=== PATIENT | female | born 1985 | race Caucasian/White ===

== ENCOUNTER → 2019-10-10 | Outpatient (CLI) | payer BC | END | disposition home or self-care (01) | LOC: LABWHC1 06:59 | PROVIDERS: ATTEND Family Medicine | DX: Z20.828 Contact with and (suspected) exposure to other viral communicable diseases (principal) | CPT/HCPCS: U0003; C9803 ==

== ENCOUNTER → 2022-11-03 | Outpatient (CLI) | payer BC | END | disposition home or self-care (01) | LOC: RADMRIMAIN 05:56 | PROVIDERS: ATTEND Family Medicine | DX: Z53.9 Procedure and treatment not carried out, unspecified reason (principal) ==

== ENCOUNTER → 2023-05-10 | Outpatient (CLI) | payer BC ==
--- NOTE | 2023-05-11 13:05 | MM ---
Reason for Exam: Screening (asymptomatic). Baseline mammogram. Patient History: Menarche at age 12. First Full-Term at age 27. Maternal aunt had breast cancer. Risk Values: Raya 5 year model risk: 0.4%. NCI Lifetime model risk: 12.3%. Prior Study Comparison: Patient's first Mammogram. Tissue Density: The breast tissue is almost entirely fat. Findings: Analyzed By CAD. There is no suspicious group of microcalcifications or new suspicious mass. Overall Assessment: Negative, BI-RAD 1 Management: Screening Mammogram of both breasts in [address] [facility] will attempt to contact patient to return for supplemental views and ultrasound if indicated. Patient should continue monthly self-breast exams. A clinical breast exam by your physician is recommended on an annual basis. This exam should not preclude additional follow-up of suspicious palpable abnormalities. Note on Raya scores and lifetime risk: 1. A Raya score greater than 3% is considered moderate risk. If this is the case, consider specialist referral to assess eligibility for a risk reducing agent. 2. If overall lifetime risk for the development of breast cancer is 20% or higher, the patient may qualify for future screening with alternating mammogram and breast MRI. Electronically signed and approved by: Singh Orta DO
== END | disposition home or self-care (01) ==
LOC: RADMAMWWP 13:11
PROVIDERS: ATTEND Family Medicine
DX: Z12.31 Encounter for screening mammogram for malignant neoplasm of breast (principal); Z80.3 Family history of malignant neoplasm of breast
CPT/HCPCS: 77063; 77067

== ENCOUNTER 2024-01-04 11:08 | Day surgery (SDC) | payer BC ==
[2024-01-03 10:34] VITALS: BMI 32.9
[2024-01-04 11:57] VITALS: RESP 16; TEMP 98.1
[2024-01-04] MEDS: LACTATED RINGERS 1,000 ML IV SCH (11:58)
[2024-01-04] MEDS: IV FLUID CONTINUATION 1,000 ML IV ONE (12:00)
[2024-01-04] MEDS: LIDOCAINE 1% (10MG/ML) FOR IV START INTRADERMA ONE (12:00)
[2024-01-04] MEDS ORDERED: PROPOFOL 10 MG/ML 20 ML VIAL IV ONE (13:05)
--- NOTE | 2024-01-04 13:06 | P.GSHP ---
History of Present Illness H&P Date: 01/04/24 38-year-old female presents for upper endoscopy. She has had GERD symptoms for the past few months that have increased in intensity. She takes omeprazole 20 mg daily without any significant effect. She describes bile taste in the back of her mouth and burning sensation in her chest. She has family history of esophageal carcinoma with her father. - Review of Systems All systems: negative Past Medical History Past Medical History: GERD/Reflux Additional Past Medical History / Comment(s): Migraines. History of Any Multi-Drug Resistant Organisms: None Reported Past Surgical History: Section Additional Past Surgical History / Comment(s): WISDOM TEETH, Endometrioma removed. Past Anesthesia/Blood Transfusion Reactions: Motion Sickness, No Reported Reaction Additional Past Anesthesia/Blood Transfusion Reaction / Comment(s): NEVER HAD GENERAL ANESTHESIA. Smoking Status: Former smoker - Past Family History Mother Family Medical History: No Reported History Father Family Medical History: Cancer Medications and Allergies Home Medications Medication Instructions Recorded Confirmed Type Ibuprofen 600 mg PO ONCE 05/09/19 01/03/24 History Control Pill 1 tab PO 1200 01/03/24 01/03/24 History Omeprazole 20 mg PO DAILY 01/03/24 01/03/24 History Allergies Allergy/AdvReac Type Severity Reaction Status Date / Time nitrofurantoin Allergy bodyaches Verified 01/04/24 11:48 [From Macrobid] Sulfa (Sulfonamide Allergy Rash/Hives Verified 01/04/24 11:48 Antibiotics) Surgical - Exam Osteopathic Statement: *. No significant issues noted on an osteopathic structural exam other than those noted in the History and Physical/Consult. Vital Signs Temp Pulse Resp BP Pulse Ox 98.1 F 94 16 155/80 100 01/04/24 11:55 01/04/24 11:55 01/04/24 11:55 01/04/24 11:55 01/04/24 11:55 - General well nourished, no distress - Eyes normal ocular movement - ENT no hearing loss - Neck trachea midline - Respiratory normal respiratory effort - Abdomen Abdomen: soft, non tender - Psychiatric oriented to time, oriented to person, oriented to place Assessment and Plan Plan: 38-year-old female with GERD. Plan for upper endoscopy. Further recommendations after procedure is completed. Risks, benefits and alternatives were discussed with the patient. All questions answered.
--- NOTE | 2024-01-04 13:15 | P.PCN ---
Date of Procedure: 01/04/24 Preoperative Diagnosis: GERD Postoperative Diagnosis: Gastritis Duodenitis Small hiatal hernia Procedure(s) Performed: EGD with biopsy Anesthesia: MAC Surgeon: Gume Aviles Pathology: other (Biopsies of antrum, duodenum, GE junction) Condition: stable Disposition: same day Indications for Procedure: 38-year-old female presents with increasing GERD symptoms of burning in chest and bile taste in the back of her throat. She also has a family history of esophageal carcinoma. Plan is for upper endoscopy for further evaluation. Risks, benefits and alternatives were provided to the patient. All questions answered. Operative Findings: Gastritis Duodenitis Small hiatal hernia Description of Procedure: Patient was brought to the endoscopy suite and placed in left lateral decubitus position and adequate sedation was achieved using conscious sedation. A bite- block was placed and an endoscope was placed in the oropharynx and advanced under endoscopic visualization. The endoscope was advanced through the esophagus into the stomach, through the gastric antrum and in through the pylorus. The third portion of duodenum was visualized. The endoscope was then slowly withdrawn. The first portion of the duodenum was noted to have mild inflammatory changes. Biopsies were taken. The antrum was noted to have mild inflammatory changes. Biopsies were taken. The gastric body distended normally and the gastric folds appeared normal and flattened with insufflation. A retroflexed view of the fundus and GE junction revealed a mild hiatal hernia. The esophagus appeared endoscopically normal. Biopsies of the GE junction were taken. Excess air was removed and the scope was withdrawn and the procedure was completed. The patient was then sent to postanesthesia care unit in stable condition.
[2024-01-04 13:35] VITALS: BP 114/69; PULSE 81
== END 2024-01-04 14:00 | disposition home or self-care (01) ==
LOC: ORWHC2ENDO 11:08
PROVIDERS: ATTEND Surgery
CPT/HCPCS: 43239; 81025; 88305

== ENCOUNTER → 2024-05-22 | Outpatient (CLI) | payer BC ==
--- NOTE | 2024-05-22 14:02 | MM ---
Reason for Exam: Screening (asymptomatic). Last screening mammogram was performed 12 month(s) ago. Patient History: Menarche at age 12. First Full-Term at age 27. Maternal aunt had breast cancer. Risk Values: Raya 5 year model risk: 0.5%. NCI Lifetime model risk: 12.3%. Prior Study Comparison: 05/10/2023 Bilateral MG 3D screening mammo w/cad, [facility]. Tissue Density: There are scattered areas of fibroglandular density. Findings: Analyzed By CAD. Right breast: There is no suspicious group of microcalcifications or new suspicious mass. Left breast: There is no suspicious group of microcalcifications or new suspicious mass. Overall Assessment: Negative, BI-RAD 1 Management: Screening Mammogram of both breasts in [address] [facility] will attempt to contact patient to return for supplemental views and ultrasound if indicated. Patient should continue monthly self-breast exams. A clinical breast exam by your physician is recommended on an annual basis. This exam should not preclude additional follow-up of suspicious palpable abnormalities. Note on Raya scores and lifetime risk: 1. A Raya score greater than 3% is considered moderate risk. If this is the case, consider specialist referral to assess eligibility for a risk reducing agent. 2. If overall lifetime risk for the development of breast cancer is 20% or higher, the patient may qualify for future screening with alternating mammogram and breast MRI. [facility], , 05/22/2024 1:58 PM. Electronically signed and approved by: Singh Orta DO
== END | disposition home or self-care (01) ==
LOC: RADMAMWWP 13:14
PROVIDERS: ATTEND Family Medicine
DX: Z12.31 Encounter for screening mammogram for malignant neoplasm of breast (principal); R92.323 Mammographic fibroglandular density, bilateral breasts; Z80.3 Family history of malignant neoplasm of breast
CPT/HCPCS: 77063; 77067